=== PATIENT | male | born 1955 | race Caucasian/White ===

== ENCOUNTER 2016-12-15 12:34 | Emergency (ER) | payer OTHER ==
[~2016-12-15] VITALS: Ht 180.3 cm; Wt 88.5 kg
[~2016-12-15 12:34] MED LIST changes: -METH-37 PO; -OXYC-323 PO
[2016-12-15] MEDS ORDERED: MORPHINE SULFATE 10 MG/ML VIAL. IM ONE ×2 (14:00→17:00)
--- NOTE | 2016-12-15 15:09 | RAD ---
CT of the head without contrast, 12/15/2016: History: Fall from deck, pain The ventricles are within normal limits in size. There is no shift of the midline structures. There is no evidence of acute intracranial hemorrhage or mass effect. IMPRESSION: No acute intracranial abnormality is detected. CT of the cervical spine without contrast, 12/15/2016: Noncontrast scans were obtained with multiplanar reconstructions produced. There is fusion of the C5 and C6 vertebral bodies. There is disc space narrowing at multiple levels in the mid and lower cervical spine with moderate scattered marginal spurs and posterior disc bulges. There are moderate degenerative changes involving scattered facet joints bilaterally. No acute fracture or dislocation is identified. The combination of degenerative changes is causing mild central spinal stenosis at multiple levels as well as mild to moderate foraminal stenosis, particularly on the left at C3-4. IMPRESSION: 1. Moderate multilevel degenerative change. 2. No acute bony abnormality is detected. PQRS Compliance Statement: One or more of the following individualized dose reduction techniques were utilized for this examination: 1. Automated exposure control 2. Adjustment of the mA and/or kV according to patient size 3. Use of iterative reconstruction technique
--- NOTE | 2016-12-15 15:21 | RAD ---
CT of the thoracic spine without contrast, 12/15/2016: History: Fall, back pain Noncontrast scans were obtained with multiplanar reconstructions produced. There is a fracture of the anteroinferior aspect of the T8 vertebral body. There is slight loss of height of the anterior aspect of that vertebral body with acute appearing fracture lines involving the inferior endplate anteriorly and laterally on the right and left. The posterior vertebral margin is intact. There is a similar, more subtle fracture involving the right inferolateral margin of the T4 vertebral body. The posterior vertebral margin is intact. There are mild to moderate scattered marginal spurs. There are degenerative type endplate irregularities at several levels in the lower thoracic spine. No other fracture is identified. The central spinal canal is well-preserved. IMPRESSION: 1. Mild acute vertebral body fractures at T4 and T8 without involvement of the spinal canal. 2. Mild scattered degenerative changes. PQRS Compliance Statement: One or more of the following individualized dose reduction techniques were utilized for this examination: 1. Automated exposure control 2. Adjustment of the mA and/or kV according to patient size 3. Use of iterative reconstruction technique
--- NOTE | 2016-12-15 15:26 | PHYS DOC ---
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 He estimates that he fell about 10 feet. He landed on his back. He hit his head and states that he "almost" lost consciousness, but not completely. He complains of pain over the sternum and in the back with mild headache. He denies weakness or numbness, dizziness, nausea, vomiting, abdominal pain, or hematuria. The patient saw his cell maker today for a previously scheduled echocardiogram. He informed of his cell maker of his fall yesterday and was instructed to come to the emergency department for evaluation. His PCP is Dr. Aron Weller. His cell maker is Dr. Ricardo. Review of Systems Review of Systems Constitutional: Denies fever or chills. [] Eyes: Denies change in visual acuity, redness, or eye pain. [] HENT: Denies ear pain, nasal congestion or sore throat. [] Respiratory: Denies cough or shortness of breath. [] Cardiovascular: Denies palpitations or edema. Reports sternal chest pain. GI: Denies abdominal pain, nausea, vomiting, bloody stools or diarrhea. [] : Denies dysuria, hematuria or urinary frequency. [] Musculoskeletal: Denies joint pain. Reports neck and back pain. Integument: Denies rash or skin lesions. Reports right shoulder ecchymosis. Neurologic: Denies loss of consciousness, dizziness, focal weakness or sensory changes. Reports mild headache. Endocrine: Denies polyuria or polydipsia. [] Psych: Denies anxiety or depression. [] All systems reviewed and negative unless otherwise stated in the HPI. Current Medications Current Medications Current Medications Medications (Trade) Dose Ordered Sig/Robert Start Time Stop Time Status Last Admin Dose Admin Morphine Sulfate 5 mg 1X ONCE 12/15/16 17:00 12/15/16 17:01 Allergies Allergies Allergies Coded Allergies Type Severity Reaction Last Updated Verified No Known Drug Allergies 05/29/14 No Physical Exam Physical Exam Constitutional: Well developed, well nourished, no acute distress, non-toxic appearance. [] HENT: Normocephalic, atraumatic, bilateral external ears normal, oropharynx moist, no oral exudates, nose normal. [] Eyes: PERRLA, EOMI, conjunctiva normal, no discharge. [] Neck: Normal range of motion, lower cervical tenderness, supple, no stridor. [] Cardiovascular: Heart rate regular rhythm, no murmur [] Lungs & Thorax: Bilateral breath sounds clear to auscultation without wheezes, rales, or rhonchi. There is tenderness over the sternum without crepitus. No respiratory distress. Abdomen: Bowel sounds normal, soft, no tenderness, no masses, no pulsatile masses. [] Skin: Warm, dry, no erythema, no rash. Mild ecchymosis of the right shoulder. Back: Diffuse midline tenderness, no CVA tenderness. Right paraspinal thoracic and lumbar muscle tenderness. Upper Extremities: No tenderness, no cyanosis, no clubbing, ROM intact, no edema. 2+ radial pulses bilaterally. Less than 2 second capillary left fingers bilaterally. Light touch sensation intact distally bilaterally. Lower Extremities: No tenderness, no cyanosis, no clubbing, RM intact, no edema. 2+ pedal pulses bilaterally. Light touch sensation intact and equal bilaterally both proximally and distally. Neurologic: Alert and oriented X 3, normal motor function, normal sensory function, no focal deficits noted. CN II-XII grossly intact. The patient walks with normal steady gait. Psychologic: Affect normal, judgement normal, mood normal. [] Current Patient Data Vital Signs Vital Signs Date Time Temp Pulse Resp B/P Pulse Ox O2 Delivery O2 Flow Rate FiO2 12/15/16 15:30 58 16 158/73 98 12/15/16 13:07 97.9 Room Air 97.9 EKG EKG EKG at 1423. Heart rate 52 bpm. Sinus rhythm without acute ischemic changes or STEMI, as interpreted by Dr. Peterson. Radiology/Procedures Radiology/Procedures REASON: fall off deck yesterday,ALSO CXR PROCEDURE: CT HEAD AND CERVICAL SPINE WO CT of the head without contrast, 12/15/2016: History: Fall from deck, pain The ventricles are within normal limits in size. There is no shift of the midline structures. There is no evidence of acute intracranial hemorrhage or mass effect. IMPRESSION: No acute intracranial abnormality is detected. CT of the cervical spine without contrast, 12/15/2016: Noncontrast scans were obtained with multiplanar reconstructions produced. There is fusion of the C5 and C6 vertebral bodies. There is disc space narrowing at multiple levels in the mid and lower cervical spine with moderate scattered marginal spurs and posterior disc bulges. There are moderate degenerative changes involving scattered facet joints bilaterally. No acute fracture or dislocation is identified. The combination of degenerative changes is causing mild central spinal stenosis at multiple levels as well as mild to moderate foraminal stenosis, particularly on the left at C3-4. IMPRESSION: 1. Moderate multilevel degenerative change. 2. No acute bony abnormality is detected. REASON: fall off deck yesterday PROCEDURE: CT THORACIC SPINE WO CONTRAST CT of the thoracic spine without contrast, 12/15/2016: History: Fall, back pain Noncontrast scans were obtained with multiplanar reconstructions produced. There is a fracture of the anteroinferior aspect of the T8 vertebral body. There is slight loss of height of the anterior aspect of that vertebral body with acute appearing fracture lines involving the inferior endplate anteriorly and laterally on the right and left. The posterior vertebral margin is intact. There is a similar, more subtle fracture involving the right inferolateral margin of the T4 vertebral body. The posterior vertebral margin is intact. There are mild to moderate scattered marginal spurs. There are degenerative type endplate irregularities at several levels in the lower thoracic spine. No other fracture is identified. The central spinal canal is well-preserved. IMPRESSION: 1. Mild acute vertebral body fractures at T4 and T8 without involvement of the spinal canal. 2. Mild scattered degenerative changes. REASON: fall off deck yesterday PROCEDURE: CT LUMBAR SPINE WO CONTRAST CT of the lumbar spine without contrast, 12/15/2016: History: Fall, pain Noncontrast scans were obtained with multiplanar reconstructions produced. No fracture or dislocation is identified. There are mild scattered marginal spurs. There are several mild posterior disc bulges. There are mild degenerative changes involving facet joints bilaterally in the lower lumbar spine. The central spinal canal is well-preserved. Incidental note is made of sigmoid diverticulosis. Aortoiliac calcific plaquing is present. A small medium density left renal cortical nodule is probably a cyst. IMPRESSION: 1. Mild scattered degenerative changes. 2. No acute bony abnormality is detected. REASON: fall off deck yesterday PROCEDURE: CHEST PA & LATERAL Chest, 2 views, 12/15/2016: History: Fall, back pain The heart size and pulmonary vascularity are normal. No pulmonary infiltrates are seen. There is no evidence of pleural fluid. There is a mild vertebral compression fracture at T8. IMPRESSION: 1. No acute cardiopulmonary abnormality is detected. 2. Mild T8 vertebral compression fracture Course & Med Decision Making Course & Med Decision Making Pertinent Labs and Imaging studies reviewed. (See chart for details) Patient is a 61-year-old male who presents with diffuse back pain and chest pain after fall from approximately 10 feet yesterday. Upon arrival to the emergency department, he is stable. On exam, he has sternal chest wall pain and diffuse midline back pain without deformity or step-off. CT of the head and C- spine are unremarkable. CT of the thoracic spine reveals mild compression fractures of T4 and T8 without involvement of the spinal canal. CT of the lumbar spine was also unremarkable. I spoke with RAMAKRISHNA Gaines with Dr. Gabriel. Dr. Gabriel reviewed the patient's scans and Liana returned my call. They recommend TLSO back brace and follow up with his PCP in one week for follow-up x -ray. The patient was discharged home with prescription for Percocet, Robaxin, and the TLSO brace. He is instructed to follow-up with his PCP in one week for follow-up x-ray. Return precautions were discussed. The patient verbalizes understanding and agrees with plan. Dragon Disclaimer Dragon Disclaimer This electronic medical record was generated, in whole or in part, using a voice recognition dictation system. Departure Departure Impression: Primary Impression: Thoracic vertebral fracture Additional Impression: Chest wall pain Disposition: 01 HOME, SELF-CARE Condition: STABLE Referrals: ARON WELLER Jr, MD (PCP) PATIENCE GABRIEL MD Patient Instructions: Back, Compression Fracture Additional Instructions: Your CT scan showed mild compression fractures at T4 and T8. The rest of your CT scans and x-rays were normal. Please take the prescribed medications as directed. Do not drive or operate heavy machinery while taking these medications. Please have the prescription for the back brace filled and wear it until your follow up appointment. Please follow up with your doctor for repeat xrays of your back in 1 week, sooner if you have concerns. Please follow up with the neurosurgeon listed below if you have any complications with your back. Return to the emergency department if you have weakness or numbness in part of your body, or other new or concerning symptoms. Scripts Methocarbamol (Robaxin)500 Mg Aeiird589 Mg PO QID #20 TAB Prov:NATACHA ALBARRAN 12/15/16 Oxycodone/Apap 5-325 (Percocet 5-325 Mg Tablet)1 Each Tablet1 Tab PO PRN Q6HRS PRN PAIN #20 TAB Prov:NATACHA ALBARRAN 12/15/16 Problem Qualifiers Primary Impression: Thoracic vertebral fracture Encounter type: initial encounter Thoracic vertebra fracture level: T8 Fracture type: closed Fracture morphology: wedge compression Qualified Code : S22.060A - Wedge compression fracture of T7-T8 vertebra, initial encounter for closed fracture NATACHA ALBARRAN Dec 15, 2016 15:26
--- NOTE | 2016-12-15 15:27 | RAD ---
CT of the lumbar spine without contrast, 12/15/2016: History: Fall, pain Noncontrast scans were obtained with multiplanar reconstructions produced. No fracture or dislocation is identified. There are mild scattered marginal spurs. There are several mild posterior disc bulges. There are mild degenerative changes involving facet joints bilaterally in the lower lumbar spine. The central spinal canal is well-preserved. Incidental note is made of sigmoid diverticulosis. Aortoiliac calcific plaquing is present. A small medium density left renal cortical nodule is probably a cyst. IMPRESSION: 1. Mild scattered degenerative changes. 2. No acute bony abnormality is detected. PQRS Compliance Statement: One or more of the following individualized dose reduction techniques were utilized for this examination: 1. Automated exposure control 2. Adjustment of the mA and/or kV according to patient size 3. Use of iterative reconstruction technique
--- NOTE | 2016-12-15 15:29 | EKG ---
[facility] [address] [place] [address] Test Date: 2016-12-15 Test Time: 14:23:22 Pat Name: ALTON GU Department: Room: Gender: M Platform Material Handler Manager: : 1955 Requested By: NATACHA ALBARRAN Order Number: [id number] Reading MD: Measurements Intervals [place] Rate: 52 P: 35 LA: 156 QRS: -23 QRSD: 90 T: -1 QT: 408 QTc: 381 Interpretive Statements SINUS RHYTHM LEFTWARD AXIS QRS(T) CONTOUR ABNORMALITY CONSIDER ANTEROSEPTAL MYOCARDIAL DAMAGE CONSISTENT WITH INFERIOR INFARCT AGE UNDETERMINED ABNORMAL ECG RI6.01 No previous ECG available for comparison
--- NOTE | 2016-12-15 15:31 | RAD ---
Chest, 2 views, 12/15/2016: History: Fall, back pain The heart size and pulmonary vascularity are normal. No pulmonary infiltrates are seen. There is no evidence of pleural fluid. There is a mild vertebral compression fracture at T8. IMPRESSION: 1. No acute cardiopulmonary abnormality is detected. 2. Mild T8 vertebral compression fracture
[2016-12-15] MEDS ORDERED: METH-37 PO (16:35)
[2016-12-15] MEDS ORDERED: OXYC-323 PO (16:35)
[2016-12-15 17:25] VITALS: BP 148/68
== END 2016-12-15 17:26 | disposition home or self-care (01) ==
LOC: ER 12:34
DX: S22.060A Wedge compression fracture of T7-T8 vertebra, initial encounter for closed fracture (principal); R07.89 Other chest pain; S40.011A Contusion of right shoulder, initial encounter; F17.200 Nicotine dependence, unspecified, uncomplicated; M54.2 Cervicalgia; W17.89XA Other fall from one level to another, initial encounter; Y93.89 Activity, other specified; Y92.89 Other specified places as the place of occurrence of the external cause; Y99.8 Other external cause status
CPT/HCPCS: 70450; 71020; 72125; 72128; 72131; 93005; 96372; 99284; J2270

== ENCOUNTER → 2016-12-15 | Outpatient (CLI) | payer OTHER ==
[2014-12-27 08:54] VITALS: BP 124/68
[~2016-12-15] MED LIST: ADAL40PE SQ; ATOR20TA PO; Aspirin PO; DIAZ5TAB PO; HYDR-2680 PO; IBUP-1027 PO; IBUP-1060 PO; MECL25TA3 PO; METH-37 PO; Metoprolol Tartrate PO; OXYC-323 PO; PRAV40TA2 PO; TICA90TA PO
--- NOTE | 2016-12-15 15:42 | CARD ---
APPROVED REPORT EXAM: Two-dimensional and M-mode echocardiogram with Doppler and color Doppler. Other Information Quality : GoodHR: 59bpm Rhythm : Bradycardia INDICATION Cardiac Disease: CAD RISK FACTORS Hyperlipidemia 2D DIMENSIONS RVDd2.7 (2.9-3.5cm)Left Atrium(2D)3.3 (1.6-4.0cm) IVSd0.8 (0.7-1.1cm)Aortic Root(2D)3.0 (2.0-3.7cm) LVDd5.2 (3.9-5.9cm)LVOT Diameter2.3 (1.8-2.4cm) PWd0.8 (0.7-1.1cm)LVDs4.2 (2.5-4.0cm) FS (%) 20.1 %SV53.6 ml LVEF(%)40.8 (>50%) Mitral Valve MV E Xlouwloz73.0cm/sMV DECEL MQFB486ii MV A Ntgecezo14.1cm/sE/A Ratio1.9 MV A Ygihdgmq174ib Tricuspid Valve TR P. Svdjqbuq409pg/sTR Peak Gr.22mmHg Pulmonary Vein S1 Mldtpbka88.5cm/sD2 Gqkzvbel93.0cm/s PVa [id number] LEFT VENTRICLE The left ventricle is normal size. There is normal left ventricular wall thickness. The Ejection Frac tion is 50%. Basal inferior wall hypokinesis. The left ventricular diastolic function and filling is normal for age. No left ventricle thrombus noted on this study. RIGHT VENTRICLE The right ventricle is normal size. There is normal right ventricular wall thickness. The right ventr icular systolic function is normal. ATRIA The left atrium size is normal. The right atrium size is normal. The interatrial septum is intact wit h no evidence for an atrial septal defect or patent foramen ovale as noted on 2-D or Doppler imaging. AORTIC VALVE The aortic valve is mildly The aortic valve is trileaflet. Doppler and Color Flow revealed no signifi cant aortic regurgitation. There is no significant aortic valvular stenosis. MITRAL VALVE The mitral valve leaflets are thickened. There is no evidence of mitral valve prolapse. There is no m itral valve stenosis. Doppler and Color Flow revealed trace mitral regurgitation. TRICUSPID VALVE Doppler and Color Flow revealed trace tricuspid regurgitation. The pulmonary artery systolic pressure is estimated at 25 mmHg. There is no pulmonary hypertension. PULMONIC VALVE The pulmonary valve is normal in structure and function. Doppler and Color Flow revealed no pulmonic valvular regurgitation. There is no pulmonic valvular stenosis. GREAT VESSELS The aortic root is normal in size. The ascending aorta is normal in size. The pulmonary artery is nor mal. The IVC is normal in size and collapses >50% with inspiration. PERICARDIAL EFFUSION There is no evidence of significant pericardial effusion. Critical Notification Critical Value: No <Conclusion> Basal inferior wall hypokinesis. The Ejection Fraction is 50%. Trace mitral regurgitation. Trace tricuspid regurgitation. The pulmonary artery systolic pressure is estimated at 25 mmHg. There is no evidence of significant pericardial effusion.
== END | disposition home or self-care (01) ==
LOC: ECHO 11:59
PROVIDERS: ATTEND Internal Medicine Cardiovascular Disease
DX: I25.10 Atherosclerotic heart disease of native coronary artery without angina pectoris (principal); I08.1 Rheumatic disorders of both mitral and tricuspid valves
CPT/HCPCS: 93306

== ENCOUNTER → 2017-02-11 | Outpatient (CLI) | payer OTHER ==
[~2017-02-11] MED LIST changes: +METH-37 PO; +OXYC-323 PO
--- NOTE | 2017-02-11 16:56 | KCIC ---
MR THORACIC SPINE Indication: Compression fractures. COMPARISON: CT thoracic spine from 12/15/2016 Technique: Sagittal T2, sagittal STIR, sagittal T1, and axial gradient echo imaging was obtained of the thoracic spine. FINDINGS: There are acute inferior endplate compression fractures at T8 and T4. Both kidneys demonstrate edema within the vertebral bodies consistent with acute chronicity. There is no retropulsion at either level. The remaining vertebral bodies are well maintained. The degree of thoracic kyphosis is normal. The cord is normal in caliber with no signal abnormality. There is ectasia of the descending thoracic aorta measuring 2.9 cm. IMPRESSION: There are acute inferior endplate compression fractures at T4 and T8. No retropulsion. Electronically signed by: Pepe Garnica MD (02/11/2017 3:16 PM)
== END | disposition home or self-care (01) ==
LOC: KCIC MRI 14:07
PROVIDERS: ATTEND Internal Medicine
DX: S22.049A Unspecified fracture of fourth thoracic vertebra, initial encounter for closed fracture (principal); S22.069A Unspecified fracture of T7-T8 vertebra, initial encounter for closed fracture; X58.XXXA Exposure to other specified factors, initial encounter; Y93.89 Activity, other specified; Y92.89 Other specified places as the place of occurrence of the external cause; Y99.8 Other external cause status
CPT/HCPCS: 72146

== ENCOUNTER 2017-03-22 09:55 | Outpatient (CLI) | payer OTHER ==
[~2017-03-22] VITALS: Ht 180.3 cm; Wt 86.2 kg
[2017-03-22] VITALS (8 sets, daily range): BP systolic 93–125; BP diastolic 61–78
[2017-03-22 10:23] LABS: BASO % 0 % (0-3); EOS % 4 % (0-3); HEMATOCRIT 42.8 % (39.0-53.0); LYMPH # 2.2 x10^3/uL (1.0-4.8); LYMPH % 30 % (24-48); MEAN CORPUSCULAR HEMOGLOBIN 32 pg (25-35); MEAN CORPUSCULAR HGB CONC 35 g/dL (31-37); MEAN CORPUSCULAR VOLUME 90 fL (79-100); MONO % 7 % (0-9); NEUT % 59 % (31-73); PLATELET COUNT 190 x10^3/uL (140-400); RED BLOOD COUNT 4.75 x10^6/uL (4.30-5.70); RED CELL DISTRIBUTION WIDTH 13.5 % (11.5-14.5); WHITE BLOOD COUNT 7.2 x10^3/uL (4.0-11.0)
[2017-03-22 10:34] LABS: INR 1.1 (0.8-1.1); PROTHROMBIN TIME PATIENT 13.1 SEC (11.7-14.0)
[2017-03-22] MEDS ORDERED: LIDOCAINE 1% / SOD BICARB 8.4% 20 ML VIAL. IJ ONE ×2 (10:50→12:00)
[2017-03-22] MEDS ORDERED: OMEG1CAP6 PO (11:08)
[2017-03-22] MEDS ORDERED: MIDAZOLAM HCL/PF 5 MG/5 ML VIAL. ONE (11:34)
[2017-03-22] MEDS ORDERED: ceFAZolin 1GM IVPB FOR OMNI 100 ML IV ONE (11:35)
[2017-03-22] MEDS ORDERED: fentaNYL PF VIAL 250 MCG/5 ML VIAL ONE (11:35)
[2017-03-22] MEDS ORDERED: fentaNYL PF VIAL 250 MCG/5 ML VIAL IV ONE (12:00)
[2017-03-22] MEDS ORDERED: ceFAZolin 1GM IVPB FOR OMNI 1 GM/50 ML BAG IV ONE (12:00)
[2017-03-22] MEDS ORDERED: MIDAZOLAM HCL/PF 5 MG/5 ML VIAL. IV ONE (12:00)
--- NOTE | 2017-03-22 13:30 | PDOC ---
BRIEF OPERATIVE NOTE Pre-Op Diagnosis T 8 compression fracture, pain non responsive to conservative thearapy Post-Op Diagnosis Same Procedure Performed T8 Vertebroplasty Surgeon Caesar PAZL 3 Anesthesiologist None Anesthesia Type: Local, Conscious Sedation Specimens Obtained None Findings T 8 compression deformity Adequate filling of VB with cement No abdnormal extrav Complications None Additional Remarks None ELLEN MORALES MD Mar 22, 2017 13:30
--- NOTE | 2017-03-22 16:43 | RAD ---
T8 vertebral augmentation 03/22/2017 Indication: T8 compression fracture, unresponsive to conservative treatment Discussion: The risks and benefits of the procedure including but not limited to bleeding, infection, cement embolization, and neurological injury including paralysis were discussed with patient. Informed consent was obtained. A timeout procedure was performed. The posterior thorax was prepped and draped using sterile barrier technique. The T8 vertebral body was identified under fluoroscopy. 1% lidocaine without epinephrine was administered to the skin and overlying the left pedicle. Under fluoroscopic guidance intracardial was advanced to the posterior third of the T2 vertebral body using a left-sided, transpedicular approach. A curved cement delivery needle was then advanced into the contralateral vertebral body. This position was confirmed under fluoroscopy. Under careful biplane fluoroscopy, methyl methacrylate based cement was instilled into the vertebral body. Once adequate cement had been delivered, the curved needle, and trocar were Removed. Manual pressure was held to achieve hemostasis. No immediate complications were identified. Fluoroscopy time 12.3 minutes Dose area product: 32 Gycm2 Procedures performed under conscious sedation including continuous cardiopulmonary monitoring via a dedicated sedation nurse. Sedation time: 40 minutes Impression: Successful T8 vertebral augmentation
== END 2017-03-22 14:57 | disposition home or self-care (01) ==
LOC: INTRAD 09:55
PROVIDERS: ATTEND Surgery
DX: S22.068A Other fracture of T7-T8 thoracic vertebra, initial encounter for closed fracture (principal); X58.XXXA Exposure to other specified factors, initial encounter; Y93.89 Activity, other specified; Y92.89 Other specified places as the place of occurrence of the external cause; Y99.9 Unspecified external cause status; I25.10 Atherosclerotic heart disease of native coronary artery without angina pectoris; M19.90 Unspecified osteoarthritis, unspecified site; F41.9 Anxiety disorder, unspecified; Z72.0 Tobacco use; Z83.3 Family history of diabetes mellitus
CPT/HCPCS: 22510; 36415; 85027; 85610; 99152; 99153; C1758; C1887; C1892; J0690; J2250; J3010

== ENCOUNTER → 2018-03-13 | Outpatient (CLI) | payer OTHER | END | disposition home or self-care (01) | LOC: KCIC MRI 11:42 | DX: M48.54XD Collapsed vertebra, not elsewhere classified, thoracic region, subsequent encounter for fracture with routine healing (principal); E78.5 Hyperlipidemia, unspecified | CPT/HCPCS: 72146 ==

== ENCOUNTER → 2018-07-14 | Outpatient (CLI) | payer OTHER ==
[2017-03-22 14:15] VITALS: BP 107/62
[~2018-07-14] MED LIST changes: +OMEG1CAP6 PO; +REGADENOSON 0.4 MG/5 ML DISP.SYRIN. IV ONE
--- NOTE | 2018-07-14 12:14 | RAD ---
MR#: [id number] Date of Study: 07/14/2018 Ordering Physician: ERICK GUILLORY, Referring Physician: MELQUIADES BREAUX Tech: RT Kavya Can) (N) APPROVED REPORT Test Type: Pharmacological Stress Nurse/Tech: Tiff Morrell R.N. Test Indications: cad Cardiac History: 2 stents 3 years ago Medications: see ehr Medical History: smoker Resting ECG: sr Resting Heart Rate: 55 bpm Resting Blood Pressure: 109/72mmHg Pretest Chest Pain: No chest pain Nurse/Tech Notes lungs cta, heart tones regular, good radial pulse Consent: The procedure was explained to the patient in lay terms. Informed consent was witnessed. Flaco eout was entered into [employer]. History and Stress Test performed by RT Kavya Romero) (N) Pharm. Details Pharmacologic stress testing was performed using 0.4mg per 5ml of regadenoson given intravenously ove r 7-10 seconds. Stress Symptoms No chest pain or symptoms. POST EXERCISE Reason for Termination: Infusion complete Target HR: No Max HR: 88 bpm Max Blood Pressure: 117/62mmHg Chest Pain: No. Arrhythmia: No. ST Change: No. INTERPRETATION Stress EKG Conclusion: No evidence of stress induced EKG changes Imaging Protocol IMAGE PROTOCOL: Rest Tc-99m/stress Tc-99m 1 day Rest: Stress: Viability: Radiopharm.Tc99m ZexyweytaQv02w Sestamibi Dose11.1mCi 35.1mCi Duration 15min. 12min. Img Date 07/14/2018 07/14/2018 Inj-Img Rldd03wbu. 60min. Rest Admin Site:IV - Left AntecubitalAdministrator:RT Kavya Romero)(N) Stress Admin Site: IV - Left AntecubitalAdministrator: RT Kavya Romero)(N) STRESS DATA End Diast. Vol.101.0mlAv. Heart Rate60.0bpm End Syst. Vol.32.0mlCO Index BSA0.0L/min Myocardial Tilw668.0gEject. Xqbdlzie08.0% Stress Rates Pk. Fill Rate2.25EDV/secLVtime Pk. Fill 126.75msec Pk. Empty Rate3.41ESV/secLVtime Pk. Yhbpg359.54msec 09/07 Pk. Fill1.56EDV/sec Stress Scores Regional WT0.00Summed WT4.00 Regional WM0.00Summed WM3.00 LV Perfusion Small sized, severe in intensity fixed basal inferior wall defect most consistent attenuation artifac t. Cannot rule out prior infarct without ischemia Wall Motion Normal wall motion. LV Perf. Quant 17 Seg. SSS4.00 17 Seg. SRS2.00 17 Seg. SDS2.00 Stress Defect Extent (% LAD)0.00Rest Defect Extent (% LAD)0.00Rev. Defect Extent (% LAD)0.00 Stress Defect Extent (% LCX) 0.00Rest Defect Extent (% LCX)0.00Rev. Defect Extent (% LCX)0.00 Stress Defect Extent (% RCA)17.80Rest Defect Extent (% RCA)0.00Rev. Defect Extent (% RCA)1.10 Stress Defect Extent (% LUIS)4.30Rest Defect Extent (% LUIS)0.00Rev. Defect Extent (% LUIS)0.20 Other Information Quality:Average Risk Assessment: Low Risk Conclusion 1. No evidence of EKG changes with stress testing. 2. Small fixed inferior defect, most consistent with attenuation artifact. 3. Low risk study. 4. EF > 60%. Signed by : Chance Guerrero, Electronically Approved : 07/14/2018 12:13:06
== END | disposition home or self-care (01) ==
LOC: NM 08:55
PROVIDERS: ATTEND Internal Medicine Cardiovascular Disease
DX: I25.10 Atherosclerotic heart disease of native coronary artery without angina pectoris (principal); Z87.891 Personal history of nicotine dependence; Z79.01 Long term (current) use of anticoagulants
CPT/HCPCS: 78452; 93017; 96374; 96375; 96376; A9500; J2785

== ENCOUNTER → 2019-08-06 | Outpatient (CLI) | payer MEDICARE, OTHER ==
[2017-03-22 14:15] VITALS: BP 107/62
[~2019-08-06] MED LIST changes: -OXYC-323 PO; +OXYC1TAB15 PO; -REGADENOSON 0.4 MG/5 ML DISP.SYRIN. IV ONE
--- NOTE | 2019-08-06 12:38 | CARD ---
MR#: [id number] Date of Study: 08/06/2019 Ordering Physician: ERICK RICARDO, Referring Physician: ERICK RICARDO, Tech: Lorri Adams APPROVED REPORT EXAM: Two-dimensional and M-mode echocardiogram with Doppler and color Doppler. Other Information Quality : GoodHR: 54bpm INDICATION Hyperlipidemia RISK FACTORS Smoking 2D DIMENSIONS RVDd2.9 (2.9-3.5cm)Left Atrium(2D)3.7 (1.6-4.0cm) IVSd1.0 (0.7-1.1cm)Aortic Root(2D)2.9 (2.0-3.7cm) LVDd5.6 (3.9-5.9cm)LVOT Diameter2.2 (1.8-2.4cm) PWd0.8 (0.7-1.1cm)LVDs3.8 (2.5-4.0cm) FS (%) 31.5 %SV89.2 ml LVEF(%)58.8 (>50%) Aortic Valve AoV Peak Francis.114.0cm/sAoV VTI24.6cm AO Peak GR.5.2mmHgLVOT Peak Francis.84.5cm/s AO Mean GR.3mmHgAVA (VMAX)2.80cm2 Mitral Valve MV E Jhkdqgig76.9cm/sMV E Peak Gr.4mmHg MV DECEL VAZB081sfOD A Pcaohrmu78.2cm/s MV E Mean Gr.1mmHgE/A Ratio1.3 Tricuspid Valve TR P. Rhchpxzz002dd/sRAP TYUKMBWF9wrLz TR Peak Gr.69uoEtQNPM64pnXq Pulmonary Vein S1 Wmwmmuel08.7cm/sD2 Ufawoweq33.9cm/s PVa rlujikiw771zidy LEFT VENTRICLE The left ventricle is normal size. There is borderline concentric left ventricular hypertrophy. Basal inferior wall hypokinesis. The Ejection Fraction is 50-55%. The left ventricular diastolic function and filling is normal for age. RIGHT VENTRICLE The right ventricle is normal size. There is normal right ventricular wall thickness. The right ventr icular systolic function is normal. ATRIA The left atrium size is normal. The right atrium size is normal. The interatrial septum is intact wit h no evidence for an atrial septal defect or patent foramen ovale as noted on 2-D or Doppler imaging. AORTIC VALVE The aortic valve is calcified but opens well. Doppler and Color Flow revealed no significant aortic r egurgitation. There is no significant aortic valvular stenosis. MITRAL VALVE The mitral valve is normal in structure and function. There is no evidence of mitral valve prolapse. There is no mitral valve stenosis. Doppler and Color-flow revealed trace to mild mitral regurgitation . TRICUSPID VALVE The tricuspid valve is normal in structure and function. Doppler and Color Flow revealed trace tricus pid regurgitation with an estimated PAP of 29 mmHg. There is no tricuspid valve prolapse or vegetatio n. There is no tricuspid valve stenosis. PULMONIC VALVE The pulmonic valve is not well visualized. Doppler and Color Flow revealed trace pulmonic valvular re gurgitation. GREAT VESSELS The aortic root is normal in size. The IVC is normal in size and collapses >50% with inspiration. PERICARDIAL EFFUSION There is no evidence of significant pericardial effusion. Critical Notification Critical Value: No <Conclusion> Basal inferior wall hypokinesis. The Ejection Fraction is 50-55%. Trace to mild mitral regurgitation. Trace tricuspid regurgitation with an estimated PAP of 29 mmHg. There is no evidence of significant pericardial effusion. Signed by : Erick Ricardo, Electronically Approved : 08/06/2019 12:38:23
== END | disposition home or self-care (01) ==
LOC: ECHO 10:54
PROVIDERS: ATTEND Internal Medicine Cardiovascular Disease
DX: I34.0 Nonrheumatic mitral (valve) insufficiency (principal); E78.5 Hyperlipidemia, unspecified
CPT/HCPCS: 93306

== ENCOUNTER → 2020-02-19 | Outpatient (CLI) | payer MEDICARE, OTHER ==
[2017-03-22 14:15] VITALS: BP 107/62
[~2020-02-19] MED LIST changes: +IOHEXOL 240 MG/ML 50ML VIAL. PO ONE; +IOHEXOL 300 MG/ML 100ML VIAL. IV ONE; +MECL-75 PO; -MECL25TA3 PO
--- NOTE | 2020-02-19 12:36 | KCIC ---
CT abdomen and pelvis with contrast History: Weight loss and pain for one month, pain after eating Technique: After the administration of intravenous contrast, CT imaging was performed of the abdomen and pelvis. Oral contrast was also given. Multiplanar images are reviewed. Exposure: One or more of the following individualized dose reduction techniques were utilized for this examination: 1. Automated exposure control 2. Adjustment of the mA and/or kV according to patient size 3. Use of iterative reconstruction technique. Comparison: May 29, 2014 Findings: There is no new significant abnormality of the visualized lung bases. There is no significant focal abnormality of the liver, spleen, pancreas. There is again probable hepatic steatosis. There is stable small right adrenal nodule about 1.1 cm. Mild fullness of the left adrenal gland more medially is also similar. Gallbladder is present without obvious intraluminal abnormality by CT. There is no new significant lymphadenopathy. Both kidneys enhance without hydronephrosis. There is a 1.8 cm exophytic focus of density arising from the mid to inferior left kidney, density measurements greater than a simple cyst at 27 Hounsfield units, very slightly larger as previously about 1.6 cm. Small hypodense lesion of the inferior left kidney 0.6 cm is fairly similar, otherwise too small to accurately characterize. There are a couple of small foci of hypodensity of the superior left kidney, one of which is larger 1.1 cm versus previously 0.4 cm, density measurements greater than simple cyst 34 Hounsfield units. There is again small focus of hypodensity of the superior right kidney about 0.8 cm, very slightly larger, density measurements suggestive of simple cyst. There is also hypodense lesion projecting medially from the mid to inferior right kidney which is larger 1.6 cm versus previously 0.5 cm, density measurements of a cyst 10 Hounsfield units. There is sigmoid diverticulosis. There is variable retained stool in the colon. Bowel is not significantly dilated. There is no free fluid or free air. Mild wall thickening of terminal ileum is not excluded on this exam although not well distended during exam, no adjacent inflammatory-type change. Normal caliber appendix is visualized without adjacent inflammatory change. There is some scattered plaque of the abdominal aorta and iliac arteries. Impression: 1. Mild wall thickening of the terminal ileum as can be seen with mild terminal ileitis is not excluded on this exam although not well distended during exam, no inflammatory type change about the bowel. There is sigmoid diverticulosis. 2. There are hypodense foci of the bilateral kidneys with variable change compared with 2014. Dominant focus on the right has density characteristics of a cyst although other foci indeterminate for simple cysts based on density characteristics. Given change in size, continued surveillance such as in 6-[address] or ultrasound evaluation is recommended. Electronically signed by: John Cardozo MD (02/19/2020 12:33 PM) [id number]
== END | disposition home or self-care (01) ==
LOC: KCIC CT 09:52
PROVIDERS: ATTEND Internal Medicine Gastroenterology
DX: K57.30 Diverticulosis of large intestine without perforation or abscess without bleeding (principal); I70.0 Atherosclerosis of aorta; R63.4 Abnormal weight loss
CPT/HCPCS: 74177; 82565; Q9966; Q9967

== ENCOUNTER → 2020-10-29 | Outpatient (CLI) | payer MEDICARE, OTHER ==
[2017-03-22 14:15] VITALS: BP 107/62
[~2020-10-29] MED LIST changes: -IOHEXOL 240 MG/ML 50ML VIAL. PO ONE; -IOHEXOL 300 MG/ML 100ML VIAL. IV ONE; +REGADENOSON 0.4 MG/5 ML DISP.SYRIN. IV ONE
--- NOTE | 2020-10-29 12:54 | RAD ---
MR#: [id number] Date of Study: 10/29/2020 Ordering Physician: ERICK GUILLORY, Referring Physician: MELQUIADES BREAUX Tech: RT Kavya Can) (N) APPROVED REPORT Test Type: Pharmacological Stress Nurse/Tech: Ros Andino RN Test Indications: CAD Cardiac History: High cholesterol,2 stents,smoker Medications: See Electronic Medical Record Medical History: See Electronic Medical Record Resting ECG: SB Resting Heart Rate: 53 bpm Resting Blood Pressure: 128/72mmHg Pretest Chest Pain: No chest pain Nurse/Tech Notes S1,S2 and lungs clear to auscultation. Consent: The procedure was explained to the patient in lay terms. Informed consent was witnessed. Flaco eout was entered into [employer]. History and Stress Test performed by RT Pamella (R) (N) Pharm. Details Pharmacologic stress testing was performed using 0.4mg per 5ml of regadenoson given intravenously ove r 7-10 seconds. Stress Symptoms Nausea POST EXERCISE Reason for Termination: Infusion complete Target HR: No Max HR: 84 bpm 64% of Maximum Predicted HR: 130 bpm Max Blood Pressure: 126/62mmHg Blood Pressure response to exercise: Normal blood pressure response during stress. Heart Rate response to exercise: WNL Chest Pain: No. Arrhythmia: No. ST Change: No. INTERPRETATION Stress EKG Conclusion: No evidence of stress induced EKG changes. Imaging Protocol IMAGE PROTOCOL: Rest Tc-99m/stress Tc-99m 1 day Rest: Stress: Viability: Radiopharm.Tc99m BitsxcvbjGv82i Sestamibi Uvno19eKh 31mCi Duration 13min. 13min. Img Date 10/29/2020 10/29/2020 Inj-Img Akcn84pik. 60min. Rest Admin Site:IV - Right AntecubitalAdministrator:RT Pamella (Iman)(N) Stress Admin Site: IV - Right AntecubitalAdministrator: RT Pamella (R)(N) STRESS DATA End Diast. Vol.112.0mlLVEDV index BSA54.0ml End Syst. Vol.38.0mlLVESV index BSA19.0ml Myocardial Xyqc440.0gEject. Tqayaueq98.0% Stress Scores Regional WT0.00Summed WT0.00 Regional WM0.00Summed WM2.00 LV Perfusion Normal perfusion at stress. Probable subdiaphragmatic attenuation artifact at rest. Wall Motion Normal wall motion. LV Perf. Quant 17 Seg. SSS0.00 17 Seg. SRS1.00 17 Seg. SDS0.00 Stress Defect Extent (% LAD)0.00Rest Defect Extent (% LAD)0.00Rev. Defect Extent (% LAD)0.00 Stress Defect Extent (% LCX) 0.00Rest Defect Extent (% LCX)0.00Rev. Defect Extent (% LCX)0.00 Stress Defect Extent (% RCA)0.00Rest Defect Extent (% RCA)11.10Rev. Defect Extent (% RCA)0.00 Stress Defect Extent (% LUIS)0.00Rest Defect Extent (% LUIS)2.20Rev. Defect Extent (% LUIS)0.00 Other Information Quality:Good Risk Assessment: Low Risk Conclusion 1. No evidence of stress induced EKG changes. 2. Moderate sized FIXED basal inferior wall defect most suggestive of artifact but cannot rule out pr ior inferior infarct. 3. Normal EF at > 60% 4. Low risk study Signed by : Chance Guerrero, Electronically Approved : 10/29/2020 12:53:51
== END ==
LOC: NM 08:41
PROVIDERS: ATTEND Internal Medicine Cardiovascular Disease
DX: I25.10 Atherosclerotic heart disease of native coronary artery without angina pectoris (principal); Z87.891 Personal history of nicotine dependence; Z95.5 Presence of coronary angioplasty implant and graft
CPT/HCPCS: 78452; 93017; A9500; J2785

== ENCOUNTER → 2021-05-06 | Outpatient (CLI) | payer MEDICARE, OTHER ==
[2017-03-22 14:15] VITALS: BP 107/62
[~2021-05-06] MED LIST changes: -REGADENOSON 0.4 MG/5 ML DISP.SYRIN. IV ONE
--- NOTE | 2021-05-06 17:05 | CARD ---
MR#: [id number] Date of Study: 05/06/2021 Ordering Physician: ERICK GUILLORY, Referring Physician: ERICK GUILLORY Tech: Danita Lock [facility] APPROVED REPORT EXAM: Two-dimensional and M-mode echocardiogram with Doppler and color Doppler. Other Information Quality : AverageHR: 53bpm Rhythm : NSR INDICATION Cardiac Disease: CAD RISK FACTORS Hyperlipidemia Smoking 2D DIMENSIONS RVDd3.4 (2.9-3.5cm)Left Atrium(2D)3.8 (1.6-4.0cm) IVSd1.1 (0.7-1.1cm)Aortic Root(2D)3.3 (2.0-3.7cm) LVDd5.0 (3.9-5.9cm)LVOT Diameter2.4 (1.8-2.4cm) PWd1.0 (0.7-1.1cm)LVDs3.9 (2.5-4.0cm) FS (%) 22.1 %SV52.5 ml LVEF(%)44.4 (>50%) Aortic Valve AoV Peak Francis.105.1cm/sAoV VTI25.6cm AO Peak GR.4.4mmHgLVOT Peak Francis.56.9cm/s AO Mean GR.3mmHgAVA (VMAX)2.47cm2 Mitral Valve MV E Qngyggct17.7cm/sMV DECEL PNFB309ao MV A Eqqsepzz89.2cm/sE/A Ratio1.9 Pulmonary Valve PV Peak Pmiktrin075.6cm/s Tricuspid Valve TR P. Nuzwvupo251rx/sTR Peak Gr.24mmHg LEFT VENTRICLE The left ventricle is normal size. There is normal left ventricular wall thickness. Basal inferior wa ll hypokinesis. Estimated ejection fraction 50-55%. The left ventricular diastolic function and filli ng is normal for age. RIGHT VENTRICLE The right ventricle is normal size. There is normal right ventricular wall thickness. The right ventr icular systolic function is normal. ATRIA The left atrium is borderline dilated. The right atrium size is normal. The interatrial septum is int act with no evidence for an atrial septal defect or patent foramen ovale as noted on 2-D or Doppler i maging. AORTIC VALVE The aortic valve is normal in structure and function. Doppler and Color Flow revealed no significant aortic regurgitation. There is no significant aortic valvular stenosis. MITRAL VALVE The mitral valve is normal in structure and function. There is no evidence of mitral valve prolapse. There is no mitral valve stenosis. Doppler and Color-flow revealed mild mitral regurgitation. TRICUSPID VALVE The tricuspid valve is normal in structure and function. Doppler and Color Flow revealed trace to mil d tricuspid regurgitation. Estimated PAP 28-32 mmHg. There is no tricuspid valve stenosis. PULMONIC VALVE The pulmonary valve is normal in structure and function. Doppler and Color Flow revealed no pulmonic valvular regurgitation. GREAT VESSELS The aortic root is normal in size. The ascending aorta is normal in size. The IVC is normal in size a nd collapses >50% with inspiration. PERICARDIAL EFFUSION There is no evidence of significant pericardial effusion. Critical Notification Critical Value: No <Conclusion> Basal inferior wall hypokinesis. Estimated ejection fraction 50-55%. Mild mitral regurgitation. Trace to mild tricuspid regurgitation. Estimated PAP 28-32 mmHg. There is no evidence of significant pericardial effusion. Signed by : Erick Guillory, Electronically Approved : 05/06/2021 17:04:55
== END ==
LOC: ECHO 10:31
PROVIDERS: ATTEND Internal Medicine Cardiovascular Disease
DX: I08.1 Rheumatic disorders of both mitral and tricuspid valves (principal); I25.10 Atherosclerotic heart disease of native coronary artery without angina pectoris; E78.5 Hyperlipidemia, unspecified; F17.200 Nicotine dependence, unspecified, uncomplicated
CPT/HCPCS: 93306